=== PATIENT | female | born 1985 | race Caucasian/White ===

== ENCOUNTER 2017-07-23 11:41 | Inpatient (IN) ==
[2017-07-23] MEDS ORDERED: LIDOCAINE 1% (10mg/ml) 2mL INJ PF SDV ID PRN (12:44)
[2017-07-23] MEDS ORDERED: METHYLERGONOVINE 0.2 MG/ML INJECTION IM PRN (12:44)
[2017-07-23] MEDS ORDERED: CARBOPROST 250 MCG/ML INJECTION IM PRN (12:44)
[2017-07-23] MEDS ORDERED: MAG-AL + SIM ORAL LIQUID 30ml PO PRN ×2 (12:44→21:05)
[2017-07-23] MEDS ORDERED: CALCIUM CARBONATE Chewable 500mg TABLET PO PRN ×2 (12:44→21:05)
[2017-07-23] MEDS ORDERED: ACETAMINOPHEN 500 MG TABLET PO PRN ×2 (12:44→21:05)
[2017-07-23 13:13] VITALS: BMI 27.3
[2017-07-23] MEDS: LR 1,000 ML IV PRN ×2 (13:31→15:55)
--- NOTE | 2017-07-23 14:35 | Anesthesia Preoperative Report ---
Anesthesia Epidural/Spinal Rec - Date and Time Date: 07/23/17 Procedure: Labor Epidural Plan: Epidural - Vital Signs Vital Signs: Temperature 97.8 F 07/23/17 13:04 Pulse Rate 76 07/23/17 13:04 Respiratory Rate 16 07/23/17 13:04 Blood Pressure 106/58 07/23/17 13:04 /Para: P:1 - Medictaions & Allergies Inpatient Medications: Current Medications Acetaminophen (Tylenol) 500 - 1,000 mg PO Q4H PRN PRN Reason: Pain Al Hydroxide/Mg Hydroxide (Maalox Plus) 30 ml PO Q3H PRN PRN Reason: Indigestion Calcium Carbonate (Tums) 500 - 1,000 mg PO Q2H PRN PRN Reason: Indigestion Carboprost Tromethamine (Hemabate) 250 mcg IM O PRN PRN Reason: .Downtime Lactated Ringer's (Lactated Ringers) 1,000 mls @ 999 mls/hr IV .Q1H1M PRN Last Admin: 07/23/17 13:31 Dose: 999 mls/hr Lidocaine HCl (Xylocaine-Mpf 1% Vial) 0.2 mg ID O PRN PRN Reason: IV Start Methylergonovine Maleate (Methergine) 0.2 mg IM O PRN Misoprostol (Cytotec) 800 mcg LA ONCE PRN Allergies/Adverse Reactions: Allergies Allergy/AdvReac Type Severity Reaction Status Date / Time No Known Allergies Allergy Unverified 07/23/17 13:18 - Home Medications Home Medications: Home Medications Medication Instructions Recorded Confirmed Type No115/Iron/Folic Acid 1 each PO DAILY 07/23/17 07/23/17 History [ 19 Chewable Tablet] - Medical History Respiratory: DENIES: Asthma Gastrointestional: Reports: Gastroesophageal Reflux Disease Other History: Reports: Now DENIES: Anesthesia Reactions - Surgical History Reproductive Surgery/Treatment: DENIES: Section Anesthesia Reactions: None Hx Family Anesthesia Reaction: No History of Motion Sickness: No - Social History Smoking Status: Never smoker Substance Use Type: does not use - Pertinent Findings Lab Data: CBC and BMP 07/23/17 13:31 - Physical Exam Respiratory Exam: lungs clear, bilateral breath sounds equal Cardiovascular Exam: regular rate and rhythm - Airway Assessment Mallampati Score: II Teeth: partial lower dentures Overall Assessment: may be difficult mask vent, may be difficult intubation - ASA ASA Score: 2 - Discussion Discussion: Discussed risks/options/alternatives of anesthesia and questions answered. Patient consents. Nursing pain assessment noted. Anesthesia Discussion: spouse Attestation Statement: Prior to the delivery of any anesthetic medication, I examined the patient, developed the plan, obtained the patient's consent and discussed the risk and benefits of the procedure with the patient/guardian.
[2017-07-23] MEDS ORDERED: ONDANSETRON 4 MG/2 ML INJECTION IVP PRN (17:13)
[2017-07-23] MEDS ORDERED: ROPIVACAINE 1% 10MG/ML INJ 200 MG, SUFentanil 50 MCG in NS 100 ML EPI PRN (17:13)
[2017-07-23] MEDS ORDERED: NALOXONE 0.4 MG/ML INJECTION IVP PRN (17:13)
[2017-07-23] MEDS ORDERED: DiphenhydrAMINE 50 MG/ML INJECTION IVP PRN (17:13)
[2017-07-23] MEDS ORDERED: HYDROCODONE/APAP 5mg/325mg TABLET PO PRN (21:05)
[2017-07-23] MEDS ORDERED: OXYTOCIN DRIP 30 UNIT/500 ML ML IV SCH (21:05)
[2017-07-23] MEDS ORDERED: DiphenhydrAMINE 25 MG CAPSULE PO PRN (21:05)
[2017-07-23] MEDS ORDERED: HYDROCORTISONE 2.5% CREAM 30gm RECTALLY PRN (21:05)
[2017-07-23] MEDS: IBUPROFEN 800 MG TABLET PO SCH (21:10)
[2017-07-24] MEDS: IBUPROFEN 800 MG TABLET PO SCH ×3 (06:23→16:10)
--- NOTE | 2017-07-24 08:18 | OB/GYN Progress Note ---
OB-PP Progress Note - General PPD1 - Subjective Date: 07/24/17 Lochia: Moderate Pain: controlled (Ibuprofen working for pain.) Voiding: voiding Nausea or Vomiting Present: No - Objective Vital Signs: Last Vital Signs Temp 98.5 F 07/24/17 07:45 Pulse 58 L 07/24/17 07:45 Resp 16 07/24/17 07:45 BP 105/65 07/24/17 07:45 Pulse Ox 99 07/24/17 07:45 Urine Output: good General: alert and oriented Respiratory: non-labored Abdomen: fundus firm Extremities: non-tender Laboratory: Laboratory Results - last 24 hr 07/23/17 13:31 WBC 10.4 RBC 3.96 L Hgb 11.9 L Hct 36.4 MCV 91.9 MCH 30.1 MCHC 32.7 RDW Std Deviation 42.9 Plt Count 158 MPV 11.6 - Assessment Assessment: - Plan Plan: routine care (Prefers dismissal this evening, but baby not nursing well at this time. will evaluate. )
--- NOTE | 2017-07-24 08:55 | Anesthesia Postoperative Note ---
- Date and Time Date: 07/24/17 Time: 08:54 - Status Patient Participated in Evaluation: Patient Participated in Person Vital Signs: Temperature 98.5 F 07/24/17 07:45 Pulse Rate 58 L 07/24/17 07:45 Respiratory Rate 16 07/24/17 07:45 Blood Pressure 105/65 07/24/17 07:45 Pulse Oximetry 99 07/24/17 07:45 Respiratory Function: Airway Patent Mental Status: Alert and Oriented Pain Intensity: 0 Hydration: Taking PO Fluids Complications During Recover: None Apparent - Follow-Up Instructions Instructions: Per Surgeon
[2017-07-24] MEDS ORDERED: PRENATAL VITAMIN TABLET PO SCH (09:00)
[2017-07-24] MEDS ORDERED: DOCUSATE CALCIUM 240 MG CAPSULE PO SCH (09:00)
--- NOTE | 2017-07-24 11:25 | Labor and Delivery Note ---
DATE OF DELIVERY 07/23/2017 Ms. Garcia progressed well in first stage of labor. She began to push with excellent effort at the complete and +1 station. She pushed for a short time, delivering the head in the OA position. Baby was bulb suctioned on the perineum. With a further push, she delivered the baby in total. Baby was then placed on mother's abdomen for care by the nurses. After a little over two minutes, the cord was doubly clamped. It was cut by the baby's father, Carmelo. This is a liveborn male with Apgars of 10/10. Weight has not yet been obtained as baby is still in [id number] contact with mom. The placenta subsequently delivered spontaneously, intact. It had a bilobed normal appearance and a normal-appearing three-vessel cord. There was superficial bilateral periurethral lacerations that were not repaired because they were hemostatic. Vaginal sweep was performed. Total blood loss was approximately 300 mL. At the time of this dictation, mother and baby are doing well. KANE
[2017-07-24 16:15] VITALS: BP 124/79; PULSE 71; RESP 18; TEMP 98; O2SAT 100
== END 2017-07-24 21:20 | disposition home or self-care (01) | DRG 775 ==
LOC: MC 12:30
PROVIDERS: ADMIT Obstetrics & Gynecology; ATTEND Obstetrics & Gynecology